=== PATIENT | male | born 1995 | race Two or more races ===

== ENCOUNTER 2016-06-23 23:34 | Emergency (ER) | payer OTHER ==
--- NOTE | 2016-06-23 23:41 | ED Physician Chart ---
Chief Complaint/HPI - Patient Information Date Seen:: 06/23/16 Time Seen:: 23:35 Chief Complaint:: abdominal pain History of Present Illness:: 20-year-old male, otherwise healthy, brought in by ambulance with acute, moderate, 6 out of 10 at worst, now 2 out of 10, now improving, nonradiating, left-sided abdominal pain that started about 1 hour prior to arrival. Says he walked all day long and developed the pain. Says the pain is worse with lifting heavy objects. Denies nausea, vomiting, fevers, chills, chest pain, palpitations, headache, acute vision changes. Historian:: Patient Review:: Nurse's Note Reviewed Review of Systems - Review of Systems Other: Complete system review otherwise unremarkable except as noted in history of present illness. Past Medical History - Past Medical History Past Medical History: No significant medical hx Family History: None Social History: Non Smoker, No Alcohol, No Drug Use, Other Surgical History: None Psychiatricy History: None Medication: None Family Medical History - Family Member Mother History Unknown: Yes Ethnicity: Physical Exam - Physical Examination Other:: INITIAL VITAL SIGNS: Reviewed by me GENERAL: Alert and interactive. No acute distress HEAD: Head is normocephalic and atraumatic EYES: EOMI. PERRL. No scleral icterus. No conjunctival injection ENT: Moist mucous membranes. NECK: Supple. No masses. Full range of motion RESPIRATORY: No tachypnea. Clear breath sounds bilaterally. No wheezing, rales, or rhonchi CV: Regular rate and rhythm. No murmurs, rubs, or gallops ABDOMEN: Soft, non-distended, non-tender. No guarding. No rebound. No masses. EXTREMITIES: No deformity. No cyanosis. No edema. SKIN: Warm and dry. No obvious rashes. NEUROLOGIC: Alert and oriented. Face is symmetric. Speech is normal. Moves all extremities equally. Motor and sensory distally intact. Labs/Radiology/EKG Results - Lab Results Results: Lab Results 06/23/16 06/23/16 Range/Units 23:59 23:59 WBC 14.4 H (4.8-10.8) Th/cmm RBC 5.03 (4.30-5.70) Mil/cmm Hgb 14.7 (13.2-17.3) gm/dL Hct 43.2 (39.0-49.0) % MCV 85.8 (80-99) fl MCH 29.2 (26.0-30.0) pg MCHC Differential 34.1 (28.0-36.0) pg RDW 12.3 (11.5-20.0) % Plt Count 305 (150-400) Th/cmm MPV 7.8 fl Neutrophils % 84.5 H (40.0-80.0) % Lymphocytes % 11.8 L (20.0-50.0) % Monocytes % 3.4 (2.0-10.0) % Eosinophils % 0.3 (0.0-5.0) % Basophils % 0.0 (0.0-2.0) % Sodium 141 (136-145) mEq/L Potassium 3.8 (3.5-5.1) mEq/L Chloride 102 (98-107) mEq/L Carbon Dioxide 21.8 (21.0-31.0) mEq/L Anion Gap 21.0 H (7.0-16.0) BUN 30 H (7-25) mg/dL Creatinine 1.6 H (0.7-1.3) mg/dL Est GFR ( Amer) > 60.0 (>90) ml/min Est GFR (Non-Af Amer) 59.5 ml/min BUN/Creatinine Ratio 18.8 Glucose 92 (70-105) mg/dL Calcium 10.7 H (8.6-10.3) mg/dL Total Bilirubin 1.8 H (0.3-1.0) mg/dL AST 33 (13-39) U/L ALT 14 (7-52) U/L Alkaline Phosphatase 77 (34-104) U/L Total Protein 8.7 H (6.0-8.3) gm/dL Albumin 5.3 (4.2-5.5) gm/dL Globulin 3.4 gm/dL Albumin/Globulin Ratio 1.6 (1.0-1.8) Amylase 32 (29-103) U/L Lipase < 3 L (11-82) U/L - Radiology Results Results: CT abdomen and pelvis without contrast per radiology NAD ED Septic Shock - . Is Septic Shock (SBP<90, OR Lactate>4 mmol\L) present?: No Reassessment (Disposition) - Reassessment Reassessment:: Patient suffered left lower quadrant abdominal pain after walking all day long. Appears to be somewhat dehydrated. Lab abnormalities including leukocytosis likely related to dehydration. Discussed all findings with patient. Pain seems to be musculoskeletal related. Received intramuscular Toradol. Received IV normal saline for dehydration. Symptoms improved. Recommended follow up PCP 1-2 days. Return to ER precautions given. Patient says he understands and agrees with the plan. Reassessment Condition:: Improved - Diagnosis Diagnosis:: Left lower quadrant pain due to muscle strain - Aftercare/Follow up Instructions Aftercare/Follow-Up Instructions:: Counseled pt regarding lab results/diagnosis & need follow up, Refer to Discharge Instructions - Patient Disposition Discharge/Transfer:: Home Time:: 00:54 Condition at Disposition:: Improved ED Discharge Plan - Patient Disposition Admit/Discharge/Transfer: PT DISCHARGED HOME Condition at Disposition: Improved Instructions: Muscle Strain, [id number]
[2016-06-24 00:11] LABS: % EOSINOPHILS 0.3 % (0.0-5.0); % LYMPHOCYTES 11.8 % (20.0-50.0); % MONOCYTES 3.4 % (2.0-10.0); % NEUTROPHILS 84.5 % (40.0-80.0); HEMATOCRIT 43.2 % (39.0-49.0); HEMOGLOBIN 14.7 gm/dL (13.2-17.3); MEAN CELL VOLUME 85.8 fl (80-99); MEAN CORPUSCULAR HEMOGLOBIN 29.2 pg (26.0-30.0); MEAN CORPUSCULAR HGB CONC 34.1 pg (28.0-36.0); MEAN PLATELET VOLUME 7.8 fl; NEUTROPHILE ABSOLUTE 12.2 Th/cmm (1.8-8.0); PLATELET COUNT 305 Th/cmm (150-400); RED BLOOD COUNT 5.03 Mil/cmm (4.30-5.70); RED CELL DISTRIBUTION WIDTH 12.3 % (11.5-20.0)
[2016-06-24 00:12] LABS: WHITE BLOOD COUNT 14.4 Th/cmm (4.8-10.8)
[2016-06-24 00:24] LABS: ALB/GLOB RATIO 1.6 (1.0-1.8); ALKALINE PHOSPHATASE 77 U/L (34-104); AMYLASE SERUM 32 U/L (29-103); BILIRUBIN,TOTAL 1.8 mg/dL (0.3-1.0); BUN - UREA NITROGEN 30 mg/dL (7-25); BUN/CREATININE RATIO 18.8; CALCIUM SERUM 10.7 mg/dL (8.6-10.3); CARBON DIOXIDE 21.8 mEq/L (21.0-31.0); CHLORIDE 102 mEq/L (98-107); CREATININE - SERUM 1.6 mg/dL (0.7-1.3); GLUCOSE 92 mg/dL (70-105); POTASSIUM SERUM 3.8 mEq/L (3.5-5.1); SGOT 33 U/L (13-39); SGPT/ALT 14 U/L (7-52); SODIUM SERUM 141 mEq/L (136-145)
[2016-06-24 00:25] LABS: LIPASE < 3 U/L (11-82)
[2016-06-24] MEDS: Sodium Chloride 0.9% 1,000 ML IV ONE (01:19)
--- NOTE | 2016-06-24 10:06 | Diagnostic Imaging Report ---
CT abdomen and pelvis without intravenous contrast Indication: Left lower quadrant pain Comparison: None, Technique: Axial images were obtained from the lung bases to the bilateral proximal femurs without IV contrast. Coronal reconstructions were made. total DLP: 276, CTDI5.5 FINDINGS: Hypoventilatory changes of the lung bases are noted. Exam is limited due to lack of IV and oral contrast. No evidence of focal hepatic, splenic, or pancreatic lesions. The adrenal glands are poorly visualized. No evidence of hydronephrosis or nephrolithiasis. There is copious stool throughout the colon. Gas-filled loops of bowel are noted. No evidence of acute appendicitis. No evidence of free air or free fluid. There may be gallbladder sludge. The osseous structures demonstrate no acute abnormalities. Mild degenerative changes spine are noted with posterior disc bulging. IMPRESSION: Copious stool noted. Please clinically correlate for constipation. No evidence of diverticulitis. Possible gallbladder sludge. Ultrasound would further clarify. Mild degenerative changes of the spine.
== END 2016-06-24 03:05 | disposition home or self-care (01) ==
LOC: ER 23:34
DX: S39.011A Strain of muscle, fascia and tendon of abdomen, initial encounter (principal); X58.XXXA Exposure to other specified factors, initial encounter; Y93.89 Activity, other specified; Y92.89 Other specified places as the place of occurrence of the external cause; Y99.8 Other external cause status
CPT/HCPCS: 36415-UA; 80053-TC; 82150-TC; 83690-TC; 85025-TC; 96374; 96375; J1885; J7030